=== PATIENT | female | born 1960 | race Caucasian/White ===

== ENCOUNTER 2021-07-13 20:03 | Emergency (ER) | payer SELFPAY ==
[~2021-07-13] VITALS: Ht 172 cm; Wt 81.0 kg
[2021-07-13] MEDS ORDERED: NS IV 1000 ML 1,000 ML ONE (20:22)
[2021-07-13] MEDS ORDERED: NS IV 1000 ML 1,000 ML IV SCH (20:30)
[2021-07-13 20:33] LABS: BASOPHILS % (AUTO) 1 % (0-10); EOSINOPHILS % (AUTO) 1 % (0-10); HEMATOCRIT 41 % (35-52); HEMOGLOBIN 13.8 g/dL (11.5-16.0); LYMPHOCYTES % (AUTO) 50 % (12-44); MEAN CORPUSCULAR HEMOGLOBIN 32 pg (25-34); MEAN CORPUSCULAR HGB CONC 34 g/dL (32-36); MEAN CORPUSCULAR VOLUME 94 fL (80-99); MEAN PLATELET VOLUME 9.6 fL (9.0-12.2); MONOCYTES # (AUTO) 0.6 10^3/uL (0.0-1.0); MONOCYTES % (AUTO) 15 % (0-12); NEUTROPHILS # (AUTO) 1.3 10^3/uL (1.8-7.8); NEUTROPHILS % (AUTO) 34 % (42-75); PLATELET COUNT 215 10^3/uL (130-400)
--- NOTE | 2021-07-13 20:39 | ED General ---
General Chief Complaint: Cardiac/General Problems Stated Complaint: SOA Nursing Triage Note: states 1 week ago heart palpatations, dizziness, fainting, hypotension. Dr Miles Thursday, COPD hx of. Today patient "almost fainted" diarrhea, heart palpation, left side pain left arm pain History of Present Illness Date Seen by Provider: Jul 13, 2021 Time Seen by Provider: 20:07 Initial Comments 60 year old female reports a multitude of symptoms she has been experiencing intermittently over the last few weeks. She recently established care with Dr. Miles at [facility], evaluated by her on 07/10/21. Reports going to rehab after many years of alcoholism, she is 93 days sober. History of COPD, no history of diabetes or CAD. Smokes daily and is [facility]. There are several women COVID +, she has been tested daily and has been negative. She got her COVID booster on 07/10/21. She has vision changes with blurred vision or losing vision at times, it doesn't last long. She will have pain in her left upper back. No chest pain. Weakness in her left arm, Palpitations, feels like she might faint, multiple episodes of diarrhea this morning. No facial drooping or unsteady gait. She used her Albuterol and took an Aspririn tonight, then called EMS. Timing/Duration: Intermittent Severity: Mild Associated Systoms: No Chest Pain; Cough (chronic); No Diaphoresis, No Fever/Chills, No Headaches, No Loss of Appetite; Malaise; No Nausea/Vomiting, No Rash, No Seizure, No Shortness of Air, No Syncope, No Weakness Allergies and Home Medications Allergies Coded Allergies: prednisone (Verified Allergy, Unknown, 07/13/21) Patient Home Medication List Home Medication List Reviewed: Yes Review of Systems Review of Systems Constitutional: no symptoms reported, see HPI EENTM: see HPI, no symptoms reported Respiratory: no symptoms reported, see HPI Cardiovascular: no symptoms reported, see HPI; No chest pain Gastrointestinal: no symptoms reported, see HPI Genitourinary: no symptoms reported, see HPI Musculoskeletal: no symptoms reported, see HPI Skin: no symptoms reported, see HPI All Other Systems Reviewed Negative Unless Noted: Yes Past Yczgvav-Mamzdz-Ucxtzy Hx Family Medical History Reviewed Nursing Family Hx Physical Exam Vital Signs Vital Signs - First Documented 07/13/21 20:07 Temp 37.4 Pulse 97 Resp 18 B/P (MAP) 159/91 (113) Pulse Ox 98 O2 Delivery Room Air Capillary Refill : Less Than 3 Seconds Height, Weight, BMI Height: '" Weight: lbs. oz. kg; 27.00 BMI Method: General Appearance: WD/WN, Anxious Eyes: Bilateral Eye Normal Inspection, Bilateral Eye PERRL, Bilateral Eye EOMI HEENT: PERRL/EOMI, TMs Normal, Normal ENT Inspection, Pharynx Normal Neck: Full Range of Motion, Normal Inspection, Non Tender, Supple Respiratory: Chest Non Tender, Lungs Clear, Normal Breath Sounds, No Respiratory Distress Cardiovascular: Regular Rate, Rhythm, No Edema, No Murmur, Normal Peripheral Pulses Gastrointestinal: Normal Bowel Sounds, Non Tender, Soft Extremity: Normal Capillary Refill, Normal Inspection, Normal Range of Motion, Non Tender, No Calf Tenderness Neurologic/Psychiatric: Alert, Oriented x3, No Motor/Sensory Deficits, Normal Mood/Affect Skin: Normal Color, Warm/Dry Progress/Results/Core Measures Suspected Sepsis SIRS Temperature: Pulse: 97 Respiratory Rate: 18 Laboratory Tests 07/13/21 20:20: White Blood Count 4.0L Blood Pressure 159 /91 Mean: 113 Laboratory Tests 07/13/21 20:20: Creatinine 0.85, INR Comment 0.8, Platelet Count 215, Total Bilirubin 0.2 Results/Orders Lab Results Laboratory Tests Test 07/13/21 20:15 07/13/21 20:20 07/13/21 21:20 Range/Units Influenza Type A (RT-PCR) Not Detected Not Detecte Influenza Type B (RT-PCR) Not Detected Not Detecte SARS-CoV-2 RNA (RT-PCR) Detected H Not Detecte White Blood Count 4.0 L 4.3-11.0 10^3/uL Red Blood Count 4.36 3.80-5.11 10^6/uL Hemoglobin 13.8 11.5-16.0 g/dL Hematocrit 41 35-52 % Mean Corpuscular Volume 94 80-99 fL Mean Corpuscular Hemoglobin 32 25-34 pg Mean Corpuscular Hemoglobin Concent 34 32-36 g/dL Red Cell Distribution Width 12.1 10.0-14.5 % Platelet Count 215 130-400 10^3/uL Mean Platelet Volume 9.6 9.0-12.2 fL Immature Granulocyte % (Auto) 0 % Neutrophils (%) (Auto) 34 L 42-75 % Lymphocytes (%) (Auto) 50 H 12-44 % Monocytes (%) (Auto) 15 H 0-12 % Eosinophils (%) (Auto) 1 0-10 % Basophils (%) (Auto) 1 0-10 % Neutrophils # (Auto) 1.3 L 1.8-7.8 10^3/uL Lymphocytes # (Auto) 2.0 1.0-4.0 10^3/uL Monocytes # (Auto) 0.6 0.0-1.0 10^3/uL Eosinophils # (Auto) 0.0 0.0-0.3 10^3/uL Basophils # (Auto) 0.0 0.0-0.1 10^3/uL Immature Granulocyte # (Auto) 0.0 0.0-0.1 10^3/uL Prothrombin Time 11.6 L 12.2-14.7 SEC INR Comment 0.8 0.8-1.4 Activated Partial Thromboplast Time 31 24-35 SEC D-Dimer 0.76 H 0.00-0.49 UG/ML Sodium Level 141 135-145 MMOL/L Potassium Level 3.6 3.6-5.0 MMOL/L Chloride Level 103 98-107 MMOL/L Carbon Dioxide Level 23 21-32 MMOL/L Anion Gap 15 H 5-14 MMOL/L Blood Urea Nitrogen 11 7-18 MG/DL Creatinine 0.85 0.60-1.30 MG/DL Estimat Glomerular Filtration Rate 79 BUN/Creatinine Ratio 13 Glucose Level 102 70-105 MG/DL Calcium Level 9.2 8.5-10.1 MG/DL Corrected Calcium 9.0 8.5-10.1 MG/DL Magnesium Level 1.7 1.6-2.4 MG/DL Total Bilirubin 0.2 0.1-1.0 MG/DL Aspartate Amino Transf (AST/SGOT) 32 5-34 U/L Alanine Aminotransferase (ALT/SGPT) 25 0-55 U/L Alkaline Phosphatase 84 40-136 U/L Lactate Dehydrogenase 224 H 125-220 U/L Myoglobin 30.0 10.0-92.0 NG/ML Troponin I < 0.028 <0.028 NG/ML C-Reactive Protein High Sensitivity 0.35 0.00-0.50 MG/DL B-Type Natriuretic Peptide 17.0 <100.0 PG/ML Total Protein 7.3 6.4-8.2 GM/DL Albumin 4.3 3.2-4.5 GM/DL Procalcitonin 0.04 <0.10 NG/ML Serum Alcohol < 10 <10 MG/DL Urine Color YELLOW Urine Clarity SL CLOUDY Urine pH 5.5 5-9 Urine Specific [place] >=1.030 1.016-1.022 Urine Protein NEGATIVE NEGATIVE Urine Glucose (UA) NEGATIVE NEGATIVE Urine Ketones NEGATIVE NEGATIVE Urine Nitrite NEGATIVE NEGATIVE Urine Bilirubin NEGATIVE NEGATIVE Urine Urobilinogen 0.2 < = 1.0 MG/DL Urine Leukocyte Esterase NEGATIVE NEGATIVE Urine RBC (Auto) TRACE-I H NEGATIVE Urine RBC 0-2 /HPF Urine WBC 2-5 /HPF Urine Squamous Epithelial Cells 5-10 /HPF Urine Crystals NONE /LPF Urine Bacteria NEGATIVE /HPF Urine Casts NONE /LPF Urine Mucus NEGATIVE /LPF Urine Culture Indicated NO Urine Opiates Screen NEGATIVE NEGATIVE Urine Oxycodone Screen NEGATIVE NEGATIVE Urine Methadone Screen NEGATIVE NEGATIVE Urine Propoxyphene Screen NEGATIVE NEGATIVE Urine Barbiturates Screen NEGATIVE NEGATIVE Ur Tricyclic Antidepressants Screen NEGATIVE NEGATIVE Urine Phencyclidine Screen NEGATIVE NEGATIVE Urine Amphetamines Screen NEGATIVE NEGATIVE Urine Methamphetamines Screen NEGATIVE NEGATIVE Urine Benzodiazepines Screen NEGATIVE NEGATIVE Urine Cocaine Screen NEGATIVE NEGATIVE Urine Cannabinoids Screen NEGATIVE NEGATIVE My Orders Orders - JIMBO MCCALL Cbc With Automated Diff (07/13/21 20:17) Magnesium (07/13/21 20:17) Chest 1 View, Ap/Pa Only (07/13/21 20:17) Ekg Tracing (07/13/21 20:17) Comprehensive Metabolic Panel (07/13/21 20:17) Myoglobin Serum (07/13/21 20:17) Protime With Inr (07/13/21 20:17) Partial Thromboplastin Time (07/13/21 20:17) O2 (07/13/21 20:17) Monitor-Rhythm Ecg Trace Only (07/13/21 20:17) Ed Iv/Invasive Line Start (07/13/21 20:17) Bnp [place] (07/13/21 20:17) Troponin I [place] (07/13/21 20:17) Procalcitonin (Pct) (07/13/21 20:17) Hs C Reactive Protein (07/13/21 20:17) LDH (07/13/21 20:17) Influenza A And B By Pcr (07/13/21 20:17) Covid 19 Inhouse Test (07/13/21 20:17) Ed Iv/Invasive Line Start (07/13/21 20:17) Ed Iv/Invasive Line Start (07/13/21 20:21) Ns Iv 1000 Ml (Sodium Chloride 0.9%) (07/13/21 20:30) Ns Iv 1000 Ml (Sodium Chloride 0.9%) (07/13/21 20:22) Fibrin Degradation Products (07/13/21 20:20) Alcohol (07/13/21 20:42) Drug Screen Stat (Urine) (07/13/21 20:42) Ua Culture If Indicated (07/13/21 20:42) Ct Angio Chest W (07/13/21 21:28) Iohexol Injection (Omnipaque 350 Mg/Ml 1 (07/13/21 22:15) Received Contrast (Hold Metformin- Contr (07/13/21 22:15) Sodium Chloride Flush (Catheter Flush Sy (07/13/21 22:15) Ns (Ivpb) (Sodium Chloride 0.9% Ivpb Bag (07/13/21 22:15) Medications Given in ED Current Medications Medications Dose Ordered Sig/Mckay Route Start Time Stop Time Status Last Admin Dose Admin Iohexol 150 ml ONCE ONCE IV 07/13/21 22:15 07/13/21 22:16 DC 07/13/21 22:16 85 ML Sodium Chloride 10 ml NEEDED PRN IV 07/13/21 22:15 07/13/21 22:35 DC 07/13/21 22:16 10 ML Sodium Chloride 100 ml ONCE ONCE IV 07/13/21 22:15 07/13/21 22:16 DC 07/13/21 22:16 80 ML Vital Signs/I&O 07/13/21 20:07 Temp 37.4 Pulse 97 Resp 18 B/P (MAP) 159/91 (113) Pulse Ox 98 O2 Delivery Room Air Capillary Refill : Less Than 3 Seconds Blood Pressure Mean: 113 Progress Note : Time: 20:07 Progress Note Patient seen and evaluated, will give normal saline 1 L per IV. We will do lab s, EKG and chest x-ray. No weakness in UEs or LEs, no facial drooping or headache to warrant CT head for CVA. 2100 COVID +, awaiting labs. 2129 D Dimer elevated, will obtain CT angio of chest. 2214 CT angio negative for PE or acute findings. Reviewed all results with patient. Discharge instructions and return precautions reviewed with the patient. ECG Initial ECG Impression Date: Jul 13, 2021 Initial ECG Impression Time: 21:12 Initial ECG Rate: 82 Initial ECG Rhythm: Normal Sinus Initial ECG Intervals: Normal Initial ECG Intervals VT 150, QRSD 92, QT 401, QTc 469. [place] P 79, QRS 62, T 17. Initial ECG Impression: Normal Initial ECG Comparisson: No Previous ECG Available Diagnostic Imaging Diagonstic Imaging: Xray Plain Films/CT/US/NM/MRI: chest Comments NAME: LUBA JACINTO [facility] REC#: [id number] PT STATUS: REG ER : 1960 PHYSICIAN: JIMBO MCCALL ADMIT DATE: 07/13/21/ER Draft Date of Exam:07/13/21 CHEST 1 VIEW, AP/PA ONLY INDICATION: Palpitations, hypertension. COMPARISON: None. EXAMINATION: Single view of the chest. FINDINGS: Clear lungs, bilaterally. The heart is normal. There is no pneumothorax but osseous structures are normal. IMPRESSION: Negative chest. Dictated on workstation # [id number] Dict: 07/13/212033 Trans: 07/13/212036 [facility] [id number] Interpreted by: CONCEPCION BRUSH Electronically signed by: Reviewed: Reviewed by Md Diagonstic Imaging: CT Plain Films/CT/US/NM/MRI: chest Comments NAME: LUBA JACINTO [employer] REC#: [id number] PT STATUS: REG ER : 1960 PHYSICIAN: JIMBO MCCALL ADMIT DATE: 07/13/21/ER Signed Date of Exam:07/13/21 CT ANGIO CHEST W PROCEDURE: CT angiography of the chest with contrast. TECHNIQUE: Multiple contiguous axial images were obtained through the chest after uneventful bolus administration of intravenous contrast. 3D reconstructed CTA MIP acquisitions were also performed. Auto Exposure Controls were utilized during the CT exam to meet ALARA standards for radiation dose reduction. INDICATION: Chest pain, palpitations, hypertension. COMPARISON: None. FINDINGS: The heart size is normal. There is coronary artery disease. No pericardial effusion is seen. There is no pulmonary embolism. Lungs are clear. No mass or nodular infiltrate is identified. There is atherosclerosis of the renal artery origins. Osseous structures are normal. Visualized upper abdominal solid organs are intact. IMPRESSION: 1. No pulmonary embolism. 2. Coronary artery disease. 3. No infiltrate. 4. Not mentioned above, chronic calcific changes of the right adrenal gland. Dictated by: Dictated on workstation # [id number] Dict: 07/13/212209 Trans: 07/13/212218 [facility] [id number] Interpreted by: CONCEPCION BRUSH Electronically signed by: CONCEPCION BRUSH 07/13/212218 Reviewed: Reviewed by Me Departure Impression Primary Impression: COVID-19 Additional Impressions: COPD (chronic obstructive pulmonary disease) Qualified Codes: J44.9 - Chronic obstructive pulmonary disease, unspecified Tobacco abuse History of alcohol abuse Disposition: HOME, SELF-CARE Condition: Stable Departure-Patient Inst. Decision time for Depature: 22:10 Referrals: [facility] [place] Patient Instructions: COVID-19 (DC) Add. Discharge Instructions: You need to quarantine at home per [facility] guidelines. Take aspirin 81 mg once daily. You may use [id number]-[id number] cough and cold medicine as needed for congestion. Continue to use your inhalers Call Dr. Miles if your symptoms are not improving or worsen. Keep scheduled follow-up appointments. Take a multivitamin that has vitamin C, D, and zinc. Increase water intake, 16 ounces every 2 hours while awake. Walk for 5 to 10 minutes every hour while awake, and take deep breaths. Return to the emergency department for new, urgent healthcare needs. All discharge instructions reviewed with patient and/or family. Voiced understanding. Copy Copies To 1: KENDRICK MILES AMY ARNP Jul 13, 2021 20:39
[2021-07-13 20:52] LABS: ALBUMIN 4.3 GM/DL (3.2-4.5); POTASSIUM 3.6 MMOL/L (3.6-5.0)
[2021-07-13 20:53] LABS: FIBRIN DEGRADATION PRODUCTS 0.76 UG/ML (0.00-0.49); INR 0.8 (0.8-1.4); PROTHROMBIN TIME PATIENT 11.6 SEC (12.2-14.7)
[2021-07-13 20:54] LABS: CALCIUM 9.2 MG/DL (8.5-10.1)
[2021-07-13 20:55] LABS: TOTAL PROTEIN 7.3 GM/DL (6.4-8.2)
[2021-07-13 20:57] LABS: BILIRUBIN,TOTAL 0.2 MG/DL (0.1-1.0)
[2021-07-13 20:59] LABS: CREATININE SERUM 0.85 MG/DL (0.60-1.30)
[2021-07-13 21:01] LABS: MAGNESIUM 1.7 MG/DL (1.6-2.4)
[2021-07-13 21:30] LABS: BILIRUBIN,URINE NEGATIVE (NEGATIVE); CLARITY,URINE SL CLOUDY; COLOR,URINE YELLOW; GLUCOSE, URINE (UA) NEGATIVE (NEGATIVE); KETONES,URINE NEGATIVE (NEGATIVE); LEUKOCYTE ESTERASE ,URINE NEGATIVE (NEGATIVE); NITRITE,URINE NEGATIVE (NEGATIVE); PH,URINE 5.5 (5-9); PROTEIN,URINE NEGATIVE (NEGATIVE)
[2021-07-13 21:39] LABS: BACTERIA,URINE NEGATIVE /HPF; RBC,URINE 0-2 /HPF
[2021-07-13 21:45] LABS: AMPHETAMINE SCREEN, URINE NEGATIVE (NEGATIVE); BARBITURATE SCREEN URINE NEGATIVE (NEGATIVE); BENZODIAZEPINES SCREEN URINE NEGATIVE (NEGATIVE); CANNABINOID SCREEN, URINE NEGATIVE (NEGATIVE); COCAINE SCREEN URINE NEGATIVE (NEGATIVE); METHADONE STAT NEGATIVE (NEGATIVE); METHAMPHETAMINE SCREEN URINE S NEGATIVE (NEGATIVE); OPIATE SCREEN URINE NEGATIVE (NEGATIVE); OXYCODONE STAT NEGATIVE (NEGATIVE); PROPOXYPHENE STAT NEGATIVE (NEGATIVE); TRICYCLIC ANTIDEPRESSANTS SCRE NEGATIVE (NEGATIVE)
[2021-07-13] MEDS ORDERED: NS 100 ML (IVPB) BAG IV ONE (22:15)
[2021-07-13] MEDS ORDERED: IOHEXOL 350 MG/ML 150 ML (OMNIPAQUE 350) VIAL IV ONE (22:15)
[2021-07-13] MEDS ORDERED: CATHETER FLUSH 10 ML SYR IV PRN (22:15)
[2021-07-13] MEDS ORDERED: HOLD METFORMIN - RECEIVED CONTRAST 20 ML VIAL IV SCH (22:15)
--- NOTE | 2021-07-13 22:15 | Diagnostic Imaging Report ---
PROCEDURE: CT angiography of the chest with contrast. TECHNIQUE: Multiple contiguous axial images were obtained through the chest after uneventful bolus administration of intravenous contrast. 3D reconstructed CTA MIP acquisitions were also performed. Auto Exposure Controls were utilized during the CT exam to meet ALARA standards for radiation dose reduction. INDICATION: Chest pain, palpitations, hypertension. COMPARISON: None. FINDINGS: The heart size is normal. There is coronary artery disease. No pericardial effusion is seen. There is no pulmonary embolism. Lungs are clear. No mass or nodular infiltrate is identified. There is atherosclerosis of the renal artery origins. Osseous structures are normal. Visualized upper abdominal solid organs are intact. IMPRESSION: 1. No pulmonary embolism. 2. Coronary artery disease. 3. No infiltrate. 4. Not mentioned above, chronic calcific changes of the right adrenal gland. Dictated by: Dictated on workstation # [id number]
[2021-07-13 22:34] VITALS: BP 151/85
== END 2021-07-13 22:34 | disposition home or self-care (01) ==
LOC: EDUNIT# 20:03 → ER 20:05
DX: U07.1 COVID-19 (principal); J44.9 Chronic obstructive pulmonary disease, unspecified; Z88.8 Allergy status to other drugs, medicaments and biological substances; F17.200 Nicotine dependence, unspecified, uncomplicated; F10.21 Alcohol dependence, in remission
CPT/HCPCS: 71045; 71275; 80053; 80306; 81000; 83615; 83735; 83874; 83880; 84145; 84484; 85025; 85379; 85610; 85730; 86141; 87636; 93005; 93041; 96360; 99284; G0480; 36415; 80320

== ENCOUNTER 2021-11-30 13:14 | Emergency (ER) | payer OTHER ==
[~2021-11-30] VITALS: Ht 167 cm; Wt 91.5 kg
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
[2021-11-30 14:39] VITALS: BP 168/78
== END 2021-11-30 14:39 | disposition home or self-care (01) ==
LOC: EDUNIT# 13:14 → ER 13:16
DX: S50.811A Abrasion of right forearm, initial encounter (principal); S10.81XA Abrasion of other specified part of neck, initial encounter; F17.210 Nicotine dependence, cigarettes, uncomplicated; Z20.822 Contact with and (suspected) exposure to COVID-19; V49.40XA Driver injured in collision with unspecified motor vehicles in traffic accident, initial encounter; Y92.410 Unspecified street and highway as the place of occurrence of the external cause
CPT/HCPCS: 82947; 87636